=== PATIENT | female | born 1980 ===

== ENCOUNTER 2016-11-03 23:59 | Emergency (ER) | payer OTHER, MEDICAID ==
[2016-11-04 00:05] VITALS: BP 118/86; PULSE 90; RESP 16; TEMP 97.2; O2SAT 99
[2016-11-04] MEDS ORDERED: Oxycodone/Acetaminophen 5/325 mg Tab PO ONE (00:39)
--- NOTE | 2016-11-04 00:42 | ED PDOC ---
Lower Extremity Pain/Injury Time Seen by Provider: 11/04/16 00:20 Chief Complaint (Nursing): Lower Extremity Problem/Injury Chief Complaint (Provider): right foot/ankle injury History Per: Patient History/Exam Limitations: no limitations Onset/Duration Of Symptoms: Hrs Current Symptoms Are (Timing): Still Present Additional History Per: Patient Additional Complaint(s): 36 y/o female brought in by EMS for eval of right ankle/foot pain, sustained prior to arrival. Patient states she tripped on side walk and twisted right ankle. Notes pain with movement. Denies numbness/weakness right lower extremity. Patient states she had surgery to same ankle 4 years ago in [facility]. Past Medical History Reviewed: Historical Data, Nursing Documentation, Vital Signs Vital Signs: Last Vital Signs Temp 97.2 F L 11/04/16 00:03 Pulse 90 11/04/16 00:03 Resp 16 11/04/16 00:03 BP 118/86 11/04/16 00:03 Pulse Ox 99 11/04/16 00:03 - Medical History PMH: No Chronic Diseases - Surgical History Surgical History: - Family History Family History: States: No Known Family Hx - Immunization History Hx Tetanus Toxoid Vaccination: No Hx Influenza Vaccination: No Hx Pneumococcal Vaccination: No - Home Medications Home Medications: Ambulatory Orders Medication Instructions Recorded DiphenhydrAMINE [Benadryl] 25 mg PO Q4H 03/08/16 Ibuprofen [Motrin Tab] 800 mg PO Q8 PRN #20 tab 11/04/16 - Allergies Allergies/Adverse Reactions: Allergies Allergy/AdvReac Type Severity Reaction Status Date / Time loratadine [From Claritin] Allergy RASH Verified 11/04/16 00:02 pollen extracts Allergy RASH Verified 11/04/16 00:02 mosquitos Allergy RASH Uncoded 11/04/16 00:02 Review of Systems ROS Statement: Except As Marked, All Systems Reviewed And Found Negative Musculoskeletal: Positive for: Foot Pain (right ankle, right foot) Physical Exam - Reviewed Nursing Documentation Reviewed: Yes Vital Signs Reviewed: Yes - Physical Exam Appears: Positive for: Well, Non-toxic, Uncomfortable Head Exam: Positive for: ATRAUMATIC, NORMAL INSPECTION, NORMOCEPHALIC Skin: Positive for: Normal Color Eye Exam: Positive for: Normal appearance Cardiovascular/Chest: Positive for: Regular Rate, Rhythm Respiratory: Positive for: Normal Breath Sounds Pulses-Dorsalis Pedis (L): 2+ Pulses-Dorsalis Pedis (R): 2+ Pulses-Post. Tibialis (L): 2+ Pulses-Post. Tibialis (R): 2+ Back: Positive for: Normal Inspection Extremity: Positive for: Tenderness (diffuse dorsal right foot, right lateral malleolus (with + swelling), right medial malleolus (with mild swelling). Distal NV, motor intact) Neurologic/Psych: Positive for: Alert, Oriented. Negative for: Motor/Sensory Deficits - ECG O2 Sat by Pulse Oximetry: 99 - Other Rad right ankle xray X-Ray: Viewed By Ca X-Ray Interpretation: no acute findings right foot xray X-Ray: Viewed By Ca X-Ray Interpretation: no acute findings - Progress ED Course And Treament: xrays, percocet PO Patient evaluated by podiatry resident on-call; foot/ankle wrapped in win dressing, surgical shoe given. Patient given crutches with demonstration on use. Advised RICE. Rx ibuprofen given. Follow up podiatry clinic. Return to ED for worsening/concerning symptoms. Disposition - Clinical Impression Clinical Impression: Ankle injury, Foot injury - Patient ED Disposition Is Patient to be Admitted: No Counseled Patient/Family Regarding: Studies Performed, Diagnosis, Need For Followup, Rx Given - Disposition Referrals: Podiatry Clinic [Outside] Disposition: Routine/Home Disposition Time: 02:46 Condition: IMPROVED Prescriptions: Ibuprofen [Motrin Tab] 800 mg PO Q8 PRN #20 tab PRN Reason: Pain, Moderate (4-7) Instructions: Ankle Sprain (ED), Foot Sprain (ED), RICE Therapy (ED) Print Language: TOGOLESE
--- NOTE | 2016-11-04 01:16 | CP.PCM.CON ---
History of Present Illness - History of Present Illness History of Present Illness: 36 y/o female with no PMHx seen at bedside in ED complaining of pain in her right ankle which started after she tripped and fell. Patient states that she had an ankle fracture about 2 years ago. Patient states that she got a surgery to that ankle to fix the fracture. Patient states that they put screws to bring the fracture back together. Patient states that today she was walking on the street and fell down and irritated her right ankle. Patient states that she called the ambulance because she was unable to walk after she fell. Patient states that she feels her screws at the ankle joint. Patient rates her pain as 10/10 on VAS. Patient denies of any other pedal complains as of now. Patient denies of any recent F/N/V/C/SOB/CP today. PMHx: Denies PSHx: Right ankle surgery, c-sections Allergies: Pollen, Loratadine Review of Systems - Constitutional Constitutional: As Per HPI Past Patient History - Past Social History Smoking Status: Light Smoker < 10 Cigarettes Daily - PSYCHIATRIC Hx Substance Use: No - SURGICAL HISTORY Hx Orthopedic Surgery: Yes (right foot) - ANESTHESIA Hx Anesthesia: Yes Hx Anesthesia Reactions: No Meds Allergies/Adverse Reactions: Allergies Allergy/AdvReac Type Severity Reaction Status Date / Time loratadine [From Claritin] Allergy RASH Verified 11/04/16 00:02 pollen extracts Allergy RASH Verified 11/04/16 00:02 mosquitos Allergy RASH Uncoded 11/04/16 00:02 Physical Exam - Constitutional Appears: Well, Non-toxic, No Acute Distress - Extremities Exam Additional comments: Bilateral Lower Extremity Exam: VASC: DP/PT pulses are palpable 2/4, Cap refill time: < 3 sec to all digits, Temp gradient: warm to cool from proximal to distal, no pitting or non-pitting edema noted at the ankle joint b/l DERM: no open lesions, previous surgical scar noted on the medial and lateral ankle, no clinical suspicion of active infection NEURO: Protective sensation grossly intact ORTHO: Pain on palpation along the surgical scar of the right lateral ankle, pain on palpation of the ATFL ligament, minimal pain on palpation of the CFL ligament at the right ankle, no pain on palpation along the course of the peroneal tendon, no pain on palpation of the base of the 5th metatarsal, no pain on palpation of the deltoid ligaments, Active DF, PF, inversion and eversion is slightly diminished due to patient guarding during exam, unable to perform passive ROM due to patient guarding - Neurological Exam Neurological exam: Alert, Oriented x3 - Psychiatric Exam Psychiatric exam: Normal Affect, Normal Mood Results - Vital Signs Recent Vital Signs: Last Vital Signs Temp 97.2 F L 11/04/16 00:03 Pulse 90 11/04/16 00:03 Resp 16 11/04/16 00:03 BP 118/86 11/04/16 00:03 Pulse Ox 99 11/04/16 00:43 Assessment & Plan - Assessment and Plan (Free Text) Assessment: 36 y/o female seen at bedside in ED for right ankle pain secondary to a fall Plan: Patient seen and evaluated at bedside in ED Patient discussed in details with attending Dr. Lisa Thornton and charts reviewed X-rays of the foot and ankle reviewed: - no evidence of acute fracture, joints are in proper alignment. Ankle hardware appears intact Patient placed in Hernandez compressive dressing Patient educated to ice elevate, and rest right lower extremity Patient educated to take pain medications if the pain is not tolerated Patient educated they may need to remove the hardware in future Patient educated to follow up in podiatry clinic Patient demonstrated verbal understanding Thank you for the podiatry consult - Date & Time Date: 11/04/16 Time: 01:30
--- NOTE | 2016-11-04 11:03 | RAD ---
PROCEDURE: Right Ankle Radiographs. HISTORY: fall, pain, h/o surgery COMPARISON: None FINDINGS: BONES: No acute fracture. There are threaded screws through the distal fibular diaphysis and through the medial malleolus, presumably status post ORIF of medial malleolar and distal fibular fractures. JOINTS: Normal. No osteoarthritis. Ankle mortise maintained. Talar dome intact SOFT TISSUES: Normal. OTHER FINDINGS: None. IMPRESSION: No acute fracture.
--- NOTE | 2016-11-04 11:05 | RAD ---
PROCEDURE: Right Foot Radiographs. HISTORY: fall, pain, h/o surgery COMPARISON: None. FINDINGS: BONES: Normal. No fracture. JOINTS: Normal. SOFT TISSUES: Normal. OTHER FINDINGS: None. IMPRESSION: Normal right foot radiographs.
== END 2016-11-04 03:15 | disposition home or self-care (01) ==
LOC: H.ER 23:59
DX: S93.401A Sprain of unspecified ligament of right ankle, initial encounter (principal); Y92.89 Other specified places as the place of occurrence of the external cause; W19.XXXA Unspecified fall, initial encounter

== ENCOUNTER 2017-02-12 18:35 | Emergency (ER) | payer MEDICAID, OTHER ==
[2017-02-12 18:42] VITALS: BP 118/77; PULSE 65; RESP 20; TEMP 98.8; O2SAT 99
[2017-02-12] MEDS ORDERED: Oxycodone/Acetaminophen 5/325 mg Tab PO STA (19:00)
--- NOTE | 2017-02-12 19:03 | ED PDOC ---
HPI: Back Time Seen by Provider: 02/12/17 18:55 Chief Complaint (Nursing): Back Pain Chief Complaint (Provider): Cough, Back Pain History Per: Patient History/Exam Limitations: no limitations Onset/Duration Of Symptoms: Days (x 2 weeks) Current Symptoms Are (Timing): Still Present Additional Complaint(s): Marissa Rolle is a 36 y/o female who presents to the ER complaining of cough, congestion, and fever for 2 week. Now she has developed 2 days of right-sided back pain. Patient is concerned about having a UTI. She took Naprosyn 1 hour prior to arrival without relief. Patient is not febrile upon arrival. PMD: Dr. Tu Baker Past Medical History Reviewed: Historical Data, Nursing Documentation, Vital Signs Vital Signs: Last Vital Signs Temp 98.8 F 02/12/17 18:40 Pulse 65 02/12/17 18:40 Resp 20 02/12/17 18:40 BP 118/77 02/12/17 18:40 Pulse Ox 99 02/12/17 18:40 - Medical History Other PMH: seasonal allergies - Surgical History Surgical History: - Family History Family History: States: Unknown Family Hx - Immunization History Hx Tetanus Toxoid Vaccination: No Hx Influenza Vaccination: No Hx Pneumococcal Vaccination: No - Home Medications Home Medications: Ambulatory Orders Medication Instructions Recorded DiphenhydrAMINE [Benadryl] 25 mg PO Q4H 03/08/16 Ibuprofen [Motrin Tab] 800 mg PO Q8 PRN #20 tab 11/04/16 Albuterol HFA [Ventolin HFA 90 2 puff IH [id number] PRN #1 inhaler 02/12/17 mcg/actuation (8 g)] Naproxen 1 tab PO Q12 PRN #14 tab 02/12/17 oxyCODONE/Acetaminophen [Percocet 1 ea PO Q6 PRN #6 tab 02/12/17 5/325 mg Tab] - Allergies Allergies/Adverse Reactions: Allergies Allergy/AdvReac Type Severity Reaction Status Date / Time loratadine [From Claritin] Allergy RASH Verified 11/04/16 00:02 pollen extracts Allergy RASH Verified 11/04/16 00:02 mosquitos Allergy RASH Uncoded 11/04/16 00:02 Review of Systems ROS Statement: Except As Marked, All Systems Reviewed And Found Negative Constitutional: Negative for: Fever, Chills ENT: Positive for: Nose Congestion Respiratory: Positive for: Cough, Sputum Genitourinary Female: Positive for: Dysuria Musculoskeletal: Positive for: Back Pain Physical Exam - Reviewed Nursing Documentation Reviewed: Yes Vital Signs Reviewed: Yes - Physical Exam Appears: Positive for: Non-toxic (but pt is tearful) Head Exam: Positive for: ATRAUMATIC, NORMAL INSPECTION, NORMOCEPHALIC Skin: Positive for: Normal Color, Warm, Dry Eye Exam: Positive for: EOMI, Normal appearance, PERRL Neck: Positive for: Normal Cardiovascular/Chest: Positive for: Regular Rate, Rhythm. Negative for: Murmur Respiratory: Positive for: Rhonchi (right-sided). Negative for: Wheezing, Respiratory Distress Back: Positive for: Other (Tender at right paralumbar/parathoracic regions). Negative for: Vertebral Tenderness Extremity: Positive for: Normal ROM. Negative for: Deformity Neurologic/Psych: Positive for: Alert, Oriented - ECG O2 Sat by Pulse Oximetry: 99 (RA) Pulse Ox Interpretation: Normal - Progress ED Course And Treament: duoneb x 1 dose percocet 5/325 mg x 1 dose Medical Decision Making Medical Decision Making: Time: 19:00 Initial Plan: --ED urine --ED urine dip --Urine culture --Urinalysis --Chest x-ray --Albuterol 2.5mg INH --Percocet 1 tab PO --Peak Flow pre/post treatment Scribe Attestation: Documented by Livier Arnett, acting as a scribe for Jim Alegria PA-C Provider Scribe Attestation: All medical record entries made by the Scribe were at my direction and personally dictated by me. I have reviewed the chart and agree that the record accurately reflects my personal performance of the history, physical exam, medical decision making, and the department course for this patient. I have also personally directed, reviewed, and agree with the discharge instructions and disposition. Disposition - Clinical Impression Clinical Impression: Back strain - Patient ED Disposition Is Patient to be Admitted: No - Disposition Disposition: Routine/Home Disposition Time: 20:03 Condition: FAIR Prescriptions: Albuterol HFA [Ventolin HFA 90 mcg/actuation (8 g)] 2 puff IH [id number] PRN #1 inhaler PRN Reason: Cough Naproxen 1 tab PO Q12 PRN #14 tab PRN Reason: Pain, Moderate (4-7) oxyCODONE/Acetaminophen [Percocet 5/325 mg Tab] 1 ea PO Q6 PRN #6 tab PRN Reason: Pain, Moderate (4-7) Instructions: Viral Syndrome (ED) Forms: [facility] (Swiss), [facility] ED School/Work Excuse Print Language: MICRONESIAN
[2017-02-12] MEDS: Albuterol 0.083% Inhal Sol (2.5 mg/3 mL) UD INH STA ×2 (19:45→19:56)
[2017-02-12] MEDS ORDERED: Albuterol-Ipratrop 3 mg / 0.5 (3 ml) UD INH STA (19:48)
[2017-02-12 20:29] LABS: SQUAMOUS EPITHIAL 6 /hpf (0-5); URINE BACTERIA RARE (<OCC); URINE BILIRUBIN NEGATIVE (NEGATIVE); URINE BLOOD MODERATE (NEGATIVE); URINE CLARITY CLOUDY (Clear); URINE COLOR YELLOW (YELLOW); URINE GLUCOSE (UA) NEG (Normal); URINE HYALINE CAST 0-2 /hpf (0-2); URINE LEUKOCYTE ESTERASE SMALL Leu/uL (Negative); URINE NITRATE NEGATIVE (NEGATIVE); URINE PROTEIN NEGATIVE (NEGATIVE); URINE UROBILINOGEN 0.2-1.0 mg/dL (0.2-1.0)
--- NOTE | 2017-02-13 09:09 | RAD ---
HISTORY: cough COMPARISON: No prior. TECHNIQUE: Chest PA and lateral FINDINGS: LUNGS: No active pulmonary disease. PLEURA: No significant pleural effusion identified. No pneumothorax apparent. CARDIOVASCULAR: Normal. OSSEOUS STRUCTURES: No significant abnormalities. VISUALIZED UPPER ABDOMEN: Normal. OTHER FINDINGS: None. IMPRESSION: No active disease.
== END 2017-02-12 21:00 | disposition home or self-care (01) ==
LOC: H.ER 18:35
DX: B34.9 Viral infection, unspecified (principal); M54.9 Dorsalgia, unspecified

== ENCOUNTER 2017-02-13 13:13 | Emergency (ER) | payer OTHER ==
[2017-02-13 13:16] VITALS: BP 141/89; PULSE 88; RESP 18; TEMP 98; O2SAT 100
--- NOTE | 2017-02-13 14:08 | ED PDOC ---
HPI: General Adult Time Seen by Provider: 02/13/17 13:18 Chief Complaint (Nursing): Psychiatric Evaluation History Per: Patient History/Exam Limitations: no limitations Onset/Duration Of Symptoms: Days (x 2) Current Symptoms Are (Timing): Still Present Additional History Per: Prior Records Additional Complaint(s): Marissa is a 36 year old female who presents to the emergency department via EMS for the same complaints from her prior ER visit. Patient states she was here last night and was given prescriptions, but was unable to fill it. Patient states her was unable to pickle solution maker her prescriptions since he was sick. Patient reports pharmacy store is too far away from her home and does not have money to pay for her medications. Patient realized she lost one of medications ( Aleve), but was told she could get her medication [id number]. PMD: No Family Provider Past Medical History Reviewed: Historical Data, Nursing Documentation, Vital Signs Vital Signs: Last Vital Signs Temp 98.0 F 02/13/17 13:16 Pulse 88 02/13/17 13:16 Resp 18 02/13/17 13:16 BP 141/89 02/13/17 13:16 Pulse Ox 100 02/13/17 14:10 - Surgical History Surgical History: - Family History Family History: States: Unknown Family Hx - Immunization History Hx Tetanus Toxoid Vaccination: No Hx Influenza Vaccination: No Hx Pneumococcal Vaccination: No - Home Medications Home Medications: Ambulatory Orders Medication Instructions Recorded DiphenhydrAMINE [Benadryl] 25 mg PO Q4H 03/08/16 Ibuprofen [Motrin Tab] 800 mg PO Q8 PRN #20 tab 11/04/16 Albuterol HFA [Ventolin HFA 90 2 puff IH [id number] PRN #1 inhaler 02/12/17 mcg/actuation (8 g)] Naproxen 1 tab PO Q12 PRN #14 tab 02/12/17 oxyCODONE/Acetaminophen [Percocet 1 ea PO Q6 PRN #6 tab 02/12/17 5/325 mg Tab] - Allergies Allergies/Adverse Reactions: Allergies Allergy/AdvReac Type Severity Reaction Status Date / Time loratadine [From Claritin] Allergy RASH Verified 11/04/16 00:02 pollen extracts Allergy RASH Verified 11/04/16 00:02 mosquitos Allergy RASH Uncoded 11/04/16 00:02 - ECG O2 Sat by Pulse Oximetry: 100 (RA) Pulse Ox Interpretation: Normal Medical Decision Making Medical Decision Making: Chest X-Ray (02/12/2017) shows no active disease. On discharge patient refusing to leave. Pt states she needs money and a taxi to get home. Scribe Attestation: Documented by Jeet Bañuelos, acting as a scribe for Kailey Mckeon PA-C Provider Scribe Attestation: All medical record entries made by the Scribe were at my direction and personally dictated by me. I have reviewed the chart and agree that the record accurately reflects my personal performance of the history, physical exam, medical decision making, and the department course for this patient. I have also personally directed, reviewed, and agree with the discharge instructions and disposition. Disposition - Clinical Impression Clinical Impression: Viral illness - Disposition Disposition: Routine/Home Disposition Time: 14:35 Condition: STABLE Instructions: Viral Syndrome (ED) Forms: [employer] (Armenian) Print Language: MALAWIAN
== END 2017-02-13 15:12 | disposition home or self-care (01) ==
LOC: H.ER 13:13
DX: B34.9 Viral infection, unspecified (principal)